=== PATIENT | female | born 2000 | race Caucasian/White ===

== ENCOUNTER 2023-11-28 10:38 | Outpatient (REF) | payer MEDICAID, SELFPAY ==
--- NOTE | ~2023-11-28 | XR_ITS ---
EXAMINATION: XR FOOT, LEFT XR ANKLE, LEFT CLINICAL INFORMATION: Injury. COMPARISON: None available. TECHNIQUE: 2 views of the left ankle. 3 views of the left foot. FINDINGS: LEFT ANKLE: Ankle mortise maintained. Diffuse soft tissue swelling with joint effusion. No displaced fracture appreciated. LEFT FOOT: Bone mineralization is normal. Joint spaces are preserved. There is possible subtle cortical step off along the lateral and distal aspect of the proximal phalanx of the fourth digit, possibly representing a nondisplaced corner fracture, possibly extending to the distal articular surface. XR/XR foot LT min 3V IMPRESSION: 1. Diffuse soft tissue swelling at the ankle with joint effusion. No displaced ankle fracture appreciated. 2. Possible intra-articular, nondisplaced fracture along the distal lateral aspect of the proximal phalanx of the fourth toe. Correlation with clinical exam recommended to determine further management. Recommend follow up imaging in 10-14 days if fracture is suspected. This study was presented today, 11/28/2023, for interpretation. Stat results provided at this time as requested by referring provider.
--- NOTE | ~2023-11-28 | XR_ITS ---
EXAMINATION: XR FOOT, LEFT XR ANKLE, LEFT CLINICAL INFORMATION: Injury. COMPARISON: None available. TECHNIQUE: 2 views of the left ankle. 3 views of the left foot. FINDINGS: LEFT ANKLE: Ankle mortise maintained. Diffuse soft tissue swelling with joint effusion. No displaced fracture appreciated. LEFT FOOT: Bone mineralization is normal. Joint spaces are preserved. There is possible subtle cortical step off along the lateral and distal aspect of the proximal phalanx of the fourth digit, possibly representing a nondisplaced corner fracture, possibly extending to the distal articular surface. XR/XR ankle LT min 3V IMPRESSION: 1. Diffuse soft tissue swelling at the ankle with joint effusion. No displaced ankle fracture appreciated. 2. Possible intra-articular, nondisplaced fracture along the distal lateral aspect of the proximal phalanx of the fourth toe. Correlation with clinical exam recommended to determine further management. Recommend follow up imaging in 10-14 days if fracture is suspected. This study was presented today, 11/28/2023, for interpretation. Stat results provided at this time as requested by referring provider.
== END 2023-11-28 10:39 | disposition home or self-care (01) ==
LOC: HO.XRAY 10:38
PROVIDERS: Visit Provider Emergency Medicine
DX: S99.912A Unspecified injury of left ankle, initial encounter (principal)
CPT/HCPCS: 73610; 73630